=== PATIENT | female | born 1995 | race Caucasian/White ===

== ENCOUNTER 2017-11-15 11:20 | Emergency (ER) | payer BC, OTHER ==
[2017-11-15] MEDS ORDERED: KETOROLAC 30 MG INJ IV (12:05)
[2017-11-15 12:24] LABS: ADD MAN DIFF? NO
[2017-11-15 12:44] LABS: ALANINE AMINOTRANSFERASE 26 IU/L (13-69); ALBUMIN 4.2 g/dl (3.3-4.9); ALBUMIN/GLOBULIN RATIO 1.07; ALKALINE PHOSPHATASE 90 IU/L (42-121); ANION GAP 16 (8-16); ASPARTATE AMINO TRANSFERASE 16 IU/L (15-46); BASOPHIL # 0.1 10^3/ul (0.0-0.1); BASOPHILS % 0.8 % (0.0-2.0); BILIRUBIN,INDIRECT 0.6 mg/dl (0-1.1); BILIRUBIN,TOTAL 0.6 mg/dl (0.2-1.3); BLOOD UREA NITROGEN 13 mg/dl (7-20); CALCIUM 9.3 mg/dl (8.4-10.2); CARBON DIOXIDE 25 mmol/L (21-31); CHLORIDE 107 mmol/L (97-110); CREATININE 0.54 mg/dl (0.44-1.00); EOSINOPHILS # 0.1 10^3/ul (0.0-0.5); EOSINOPHILS % 0.6 % (0.0-7.0); GLUCOSE 87 mg/dl (70-220); HEMATOCRIT 40.4 % (37.0-47.0); HEMOGLOBIN 13.4 g/dl (12.0-16.0); LIPASE 43 U/L (23-300); LYMPHOCYTES # 2.4 10^3/ul (0.8-2.9); LYMPHOCYTES % 21.6 % (18.0-55.0); MEAN CORPUSCULAR HEMOGLOBIN 29.4 pg (29.0-33.0); MEAN CORPUSCULAR HGB CONC 33.2 g/dl (32.0-37.0); MEAN CORPUSCULAR VOLUME 88.6 fl (72.0-104.0); MEAN PLATELET VOLUME 10.4 fl (7.4-10.4); MONOCYTE # 0.7 10^3/ul (0.3-0.9); MONOCYTES % 5.8 % (0.0-13.0); NEUTROPHILS % 70.8 % (30.0-74.0); PLATELET COUNT 372 10^3/UL (140-415); RED BLOOD COUNT 4.56 10^6/ul (4.20-5.40); SODIUM 144 mmol/L (135-144); TOTAL PROTEIN 8.1 g/dl (6.1-8.1)
[2017-11-15 12:44] LABS: WHITE BLOOD COUNT 11.3 10^3/ul (4.8-10.8)
[2017-11-15] MEDS: ONDANSETRON 4 MG INJ IV (12:48)
[2017-11-15] MEDS: KETOROLAC 15 MG INJ IV ×2 (12:49)
[2017-11-15 13:57] LABS: ADD UMIC NO; UR ASCORBIC ACID NEGATIVE (NEGATIVE); UR BILIRUBIN (Dip) NEGATIVE (NEGATIVE); UR BLOOD (Dip) NEGATIVE (NEGATIVE); UR CLARITY CLEAR (CLEAR); UR COLOR YELLOW (YELLOW); UR GLUCOSE (Dip) NEGATIVE (NEGATIVE); UR KETONES (Dip) NEGATIVE (NEGATIVE); UR LEUKOCYTE ESTERASE (Dip) NEGATIVE Leu/ul (NEGATIVE); UR NITRITE (Dip) NEGATIVE (NEGATIVE); UR SPECIFIC GRAVITY (Dip) 1.023 (1.003-1.030); UR TOTAL PROTEIN (Dip) NEGATIVE (NEGATIVE); UR UROBILINOGEN (Dip) NEGATIVE (NEGATIVE)
== END 2017-11-15 14:51 | disposition home or self-care (01) ==
LOC: FTE 11:20
DX: K80.20 Calculus of gallbladder without cholecystitis without obstruction (principal)
CPT/HCPCS: 36415; 76705; 80053; 81003; 81025; 83690; 85025; 96374; 96375; 99285-25

== ENCOUNTER 2017-11-18 12:12 | Day surgery (SDC) | payer BC, OTHER ==
[~2017-11-18 12:12] MED LIST: CEFAZOLIN 2 GM/50 ML (PMX) 50 ML IVPB; SOD CHLORIDE 0.9% 1,000 ML IV
[2017-11-18] MEDS ORDERED: SOD CHLORIDE 0.9% 1,000 ML IV (15:00)
[2017-11-18] MEDS ORDERED: NEOSTIGMINE 3 MG/3 ML SYRINGE (15:09)
[2017-11-18] MEDS ORDERED: GLYCOPYRROLATE 0.4 MG INJ (15:09)
[2017-11-18] MEDS ORDERED: DEXAMETHASONE 4 MG/ML 1 ML INJ (15:09)
[2017-11-18] MEDS ORDERED: CEFAZOLIN 1 GM INJ (15:09)
[2017-11-18] MEDS ORDERED: PROPOFOL 20 ML (15:09)
[2017-11-18] MEDS ORDERED: FENTAnyl 50 MCG/ML VIAL ×2 (15:09→16:00)
[2017-11-18] MEDS ORDERED: MIDAZOLAM 1 MG/ML 2 ML INJ (15:09)
[2017-11-18] MEDS ORDERED: ONDANSETRON 4 MG INJ (15:09)
[2017-11-18] MEDS ORDERED: ROCURONIUM 50 MG INJ (15:09)
[2017-11-18] MEDS ORDERED: ROPIVACAINE 0.5 % 30 ML VIAL (15:10)
[2017-11-18] MEDS ORDERED: MIDAZOLAM 1 MG/ML 2 ML INJ IV (15:30)
[2017-11-18] MEDS ORDERED: EPHEDrine SULFATE 50 MG/5 ML SYG IV (15:30)
[2017-11-18] MEDS ORDERED: ALBUTEROL 0.083% (NEB) 2.5 MG/3 ML AMP HHN (15:30)
[2017-11-18] MEDS ORDERED: hydrALAzine 20 MG INJ IV (15:30)
[2017-11-18] MEDS ORDERED: MEPERIDINE 25 MG INJ IV (15:30)
[2017-11-18] MEDS ORDERED: TRIMETHOBENZAMIDE 100 MG/ML VIAL IM (15:30)
[2017-11-18] MEDS ORDERED: IPRATROPIUM (NEB) 0.5 MG/2.5 ML AMP HHN (15:30)
[2017-11-18] MEDS ORDERED: HYDROmorphONE 1 MG/5 ML IV SYRINGE IV (15:30)
[2017-11-18] MEDS ORDERED: OXYCODONE/ACETAMINOPHEN (5/325) TAB PO ×2 (15:30)
[2017-11-18] MEDS ORDERED: DIPHENHYDRAMINE 50 MG INJ IV (15:30)
[2017-11-18] MEDS ORDERED: LABETALOL HCL 20MG INJ IV (15:30)
[2017-11-18] MEDS ORDERED: FENTAnyl 50 MCG/ML VIAL IV ×3 (15:30)
[2017-11-18] MEDS: BUPIVACAINE 0.25% (MPF) 30 ML INJ (15:32)
[2017-11-18] MEDS ORDERED: KETOROLAC 30 MG INJ (16:24)
[2017-11-18] MEDS ORDERED: SUGAMMADEX SODIUM 200 MG/2 ML VIAL IV (16:24)
[2017-11-18] MEDS ORDERED: HYDROCODONE/APAP (5/325) TAB PO (16:30)
[2017-11-18] MEDS: HYDROmorphONE 1 MG/5 ML IV SYRINGE IV ×2 (16:59→17:07)
[2017-11-18] MEDS: ONDANSETRON 4 MG INJ IV (17:15)
== END 2017-11-18 18:13 | disposition home or self-care (01) ==
LOC: SDS 12:12
DX: K81.1 Chronic cholecystitis (principal)
CPT/HCPCS: 47562; 84703; 88304